=== PATIENT | female | born 1955 | race Caucasian/White ===

== ENCOUNTER → 2016-12-06 | Outpatient (CLI) | payer BC, OTHER ==
[~2016-12-06] VITALS: Ht 170.2 cm; Wt 104.3 kg
[~2016-12-06] MED LIST: ARTHROTEC EC 51 EACH PO; CYMBALTA60 MG PO; HYDROCODONE-AP1 EAC6 PO
--- NOTE | ~2016-12-06 | HPC ---
[facility] [address] [place] [address] PAIN MANAGEMENT CONSULTATION Name: GALE ADAMS Room #: REG KEENA WalkerJesse.#: [id number] Admission: 12/06/16 Attend Phys: Giovanni Leonardo MD Discharge: Date of : 59 Report #: [id number] THIS REPORT FOR: //name// CC: DUSTIN Leonardo DATE OF SERVICE: 12/06/2016 CHIEF COMPLAINT: Arthritis, multiple joints. I am seeing the patient today at the request of Dr. Paz. She complains of daily pain. She has been evaluated by airborne mission systems superintendent as well Dr. Paz and she has generalized arthritis of many sites. She says that she has been told it is a combination of osteoarthritis and perhaps rheumatoid arthritis. Studies are inconclusive. On a daily basis, she has pain averaging 6/10. 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 At times pain is so severe, makes it very difficult for her to get through her day and by evening she is typically exhausted. She says that it always bothers her, but now it is getting harder and harder, particularly in her knees, her right hand, her left toes, she has pain in many joints. She has tried several different treatments including Arthrotec and Cymbalta with limited improvement. Anti-inflammatories do not seem to help very much. She has been given some narcotics in the past, but does not use it regular. A urine drug screen was performed in the past, she one time did not show opioid. Her easy answer for that was that she had not taken it prior to her test as many patients do. This is a patient who does not take medicine on daily and regular basis. Her is here to corroborate her story. She was accused of misusing, abusing her medication and told that she can no longer receive medication anymore from the airborne mission systems superintendent. The patient has been medication and her activities have been significantly limited. She denies any recreational drugs, denies any history of drug abuse. She does have a family history with brother who is a drug addict, so that it does put her in little bit higher category. She denies abuse. 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 Smokes half a pack of cigarettes a day, has done so for 40 years and denies alcohol. PAST MEDICAL HISTORY: Positive for depression. REVIEW OF SYSTEMS: Positive for fatigue, headaches, blurred vision, [facility] [address] [place] [address] PAIN MANAGEMENT CONSULTATION Name: GALE ADAMS Room #: REG [facility]#: [id number] Admission: 12/06/16 Attend Phys: Giovanni Leonardo MD Discharge: Date of : 59 Report #: [id number] nervousness, occasional depression and insomnia. PHYSICAL EXAMINATION: She is pleasant today without signs of overt depression. She denies depression during our discussion. She complains of pain, however, at 5/10. Blood pressure is 149/91, heart rate 79. She has a BMI of 36. She has pain with movements. She walks with antalgic features. Examination of the neck reveals decreased range of motion and tenderness. She has tenderness bilaterally in each shoulder projected with external rotation. She has pain in her knees, localized discomfort. Both hips are sore also with internal and external rotation. Ankles are slightly swollen with tenderness there as well. She has no myofascial pain. IMPRESSION: Multi joint pain. She has been told she has osteoarthritis and rheumatoid arthritis. She may also potential have polymyalgia rheumatica. RECOMMENDATIONS: I have agreed to provide her with hydrocodone 5/325 one tablet twice a day. This is a very low dose of 10 mg per day of morphine equivalent. She denies any significant side effects ____. She understands the importance of safeguarding medication, she understands the terms of the opioid agreement which we red to her today. She understands the importance of safeguarding medication to prevent any diversion and the implications towards the opioid crisis in [place] today. She understands that urine drug screen may be necessary. I have given her 2 months of medication at this dose and will follow up at that time. Urine drug screen may be performed at that visit. Followup visit planned as needed in 2 months. By: [id number] Giovanni Leonardo MD /nt
[2016-12-06 14:00] VITALS: BP 149/91
== END | disposition home or self-care (01) ==
LOC: PAIN 06:57
DX: M06.9 Rheumatoid arthritis, unspecified (principal); M19.90 Unspecified osteoarthritis, unspecified site; M25.50 Pain in unspecified joint; M35.3 Polymyalgia rheumatica; F32.89 Other specified depressive episodes; Z98.890 Other specified postprocedural states

== ENCOUNTER → 2017-02-07 | Outpatient (CLI) | payer BC, OTHER | LOC: PAIN 07:10 | DX: M17.12 Unilateral primary osteoarthritis, left knee (principal); M19.072 Primary osteoarthritis, left ankle and foot; M19.022 Primary osteoarthritis, left elbow; M19.021 Primary osteoarthritis, right elbow; M54.5 Low back pain ==

== ENCOUNTER → 2017-05-09 | Outpatient (CLI) | payer BC, OTHER ==
[~2017-05-09] VITALS: Ht 170.2 cm; Wt 97.1 kg
[~2017-05-09] MED LIST changes: +DICLOFENAC-MIS1 EAC2 PO
--- NOTE | ~2017-05-09 | HPC ---
[facility] [address] [address] PAIN MANAGEMENT CONSULTATION Name: GALE ADAMS Room #: REG KEENA Fraser.#: [id number] Admission: 05/09/17 Attend Phys: Giovanni Leonardo MD Discharge: Date of : 59 Report #: [id number] THIS REPORT FOR: //name// CC: DUSTIN Leonardo DATE OF SERVICE: 05/09/2017 Followup visit for osteoarthritis. The patient returns to pain clinic today and has done very well taking a very small amount of hydrocodone. She was given hydrocodone 5/325 and has taken more than 2 tablets in any 1 day. This is a morphine milligram equivalency of 10 MME. She has had no significant side effects. She has been safeguarding medications as discussed. We discussed other options for treating pain including remaining active. 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 She does much around the house and is able to do so much better with the use of this medication. She has also been sleeping much better, which given her more energy in the day. PHYSICAL EXAMINATION: She is pleasant, alert and oriented without any signs of overmedication. Blood pressure is 128/88 and heart rate is 80. She has tenderness in her shoulders, knees and hands. Mild crepitus is noted. Small amount of swelling is noted in the distal interphalangeal joints consistent with Heberden's nodes. IMPRESSION: Osteoarthritis of knees, arms, and hands. RECOMMENDATIONS: Continue to use hydrocodone in the small amount under terms of our agreement. I provided her with 60 tablets per month with prescription to be released at 4 and 8 weeks and an opioid agreement established. The safeguarding of medications is critical and this was discussed at discharge. Followup visit planned in 3 months. By: [id number] Giovanni Leonardo MD /nt
[2017-05-09 13:45] VITALS: BP 142/93
== END ==
LOC: PAIN 06:59
DX: Z09 Encounter for follow-up examination after completed treatment for conditions other than malignant neoplasm (principal); M17.0 Bilateral primary osteoarthritis of knee; M19.042 Primary osteoarthritis, left hand; M19.041 Primary osteoarthritis, right hand; M19.012 Primary osteoarthritis, left shoulder; M19.011 Primary osteoarthritis, right shoulder

== ENCOUNTER → 2017-08-01 | Outpatient (CLI) | payer OTHER ==
[~2017-08-01] VITALS: Ht 170.2 cm; Wt 95.2 kg
--- NOTE | ~2017-08-01 | HPC ---
[facility] [address] [place] [address] PAIN MANAGEMENT CONSULTATION Name: GALE ADAMS Room #: REG KEENA Lemuel#: [id number] Admission: 08/01/17 Attend Phys: Giovanni Leonardo MD Discharge: Date of : 59 Report #: [id number] THIS REPORT FOR: //name// CC: DUSTIN PAZ DO Giovanni Leonardo The patient returns to pain clinic today, and I have provided for her 3 hydrocodone per day or 19 morphine mg equivalents. This is a low dose. Our guidelines suggest that anyone in family practice like for patients who they believe are using medication appropriately and safely can prescribe reasonably up to 50 morphine mg equivalents per day. I think that she could be treated by her primary care physician; however, she has chosen to come to the pain clinic. I discussed here that the hospital which provides this with excellent service for a procedural clinic charged her today $800 for their portion of her office visit. She says she wrote a check for $100 for my services. This is $800, and I think that her care can be provided at a more reasonable rate through her primary care office. 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 Her is with her today. She denies any significant side effects from the medication. She has been able to sleep better as a result of better pain control, once again this is helping control her pain. She has pain in her hands, knees and shoulders. Pain reduction is about 50% or so with the use of the medication. PHYSICAL EXAMINATION: GENERAL: Today, pleasant, alert and oriented with no signs of overmedication. VITAL SIGNS: Her blood pressure is 129/77, heart rate is 87, respirations 16, O2 sat on room air is 99%. She is 5 feet 7 inches with a weight of 209 pounds. Her BMI is 32.9. MUSCULOSKELETAL: Examination of the hands reveals no joint swelling, but there is tenderness throughout the metacarpophalangeal and the interphalangeal joints. There are no Heberden nodes or other signs of severely developing osteoarthritis. She has tenderness in both knees, worse on the right. Mild crepitus is noted there. No effusions are noted. IMPRESSION: Osteoarthritis involving knees primarily and hands. She also has some pains in her shoulder. RECOMMENDATIONS: Under terms of written opioid agreement, I have renewed her hydrocodone at 5/325, #60 tablets 1 tablet taken twice a day. She has also received some benefit from Arthrotec 50/200, I have ordered that with a discussion about the 2 components which are diclofenac and misoprostol. This is helpful as the stomach protector, may have a side effect of loose stools which can be beneficial for patients who have opioid related constipation. Her bowels [facility] [address] [place] [address] PAIN MANAGEMENT CONSULTATION Name: GALE ADAMS Room #: REG Ninoska Hdez#: [id number] Admission: 08/01/17 Attend Phys: Giovanni Leonardo MD Discharge: Date of : 59 Report #: [id number] are working fine at this time, and it may be due to that medication. Followup visit planned in 3 months. <ELECTRONICALLY SIGNED> By: Giovanni Leonardo MD 08/10/17 [id number] Giovanni Leonardo MD /nt
[2017-08-01 12:46] VITALS: BP 129/77
== END ==
LOC: PAIN 07:20
DX: M17.0 Bilateral primary osteoarthritis of knee (principal); M19.042 Primary osteoarthritis, left hand; M19.041 Primary osteoarthritis, right hand; M25.519 Pain in unspecified shoulder